=== PATIENT | female | born 1975 | race African-American/Black ===

== ENCOUNTER 2019-06-26 16:08 | Emergency (ER) | payer MEDICAID ==
[~2019-06-26] VITALS: Ht 167.6 cm; Wt 73.0 kg
[2019-06-26 16:15] VITALS: BP 107/63
== END 2019-06-26 17:31 | disposition left against medical advice (07) ==
LOC: ER 16:08
DX: Z53.21 Procedure and treatment not carried out due to patient leaving prior to being seen by health care provider (principal); J44.9 Chronic obstructive pulmonary disease, unspecified; M19.90 Unspecified osteoarthritis, unspecified site; Z90.710 Acquired absence of both cervix and uterus